=== PATIENT | male | born 2000 ===

== ENCOUNTER 2018-05-07 02:03 | Emergency (ER) | payer SELFPAY ==
[~2018-05-07] VITALS: Ht 188 cm; Wt 59.1 kg
[2018-05-07 02:16] VITALS: Ht 188 cm; Wt 59.1 kg
[2018-05-07] MEDS ORDERED: TAMIFLU75 MG PO (02:49)
[2018-05-07 03:01] VITALS: BP 117/78
== END 2018-05-07 03:11 | disposition home or self-care (01) ==
LOC: D.ER 02:03
DX: J09.X2 Influenza due to identified novel influenza A virus with other respiratory manifestations (principal); R50.9 Fever, unspecified; R09.89 Other specified symptoms and signs involving the circulatory and respiratory systems; F17.200 Nicotine dependence, unspecified, uncomplicated